=== PATIENT | male | born 1965 | race Caucasian/White ===

== ENCOUNTER 2019-08-06 14:04 | Emergency (ER) | payer BC, OTHER ==
--- OUTSIDE RECORDS SUMMARY | 2019-08-06 14:18 | XMS REPORT | Continuity of Care Document ---
:1965 External Reference #:[id number] Author Name Zulma Watson M.D. (transmitted by agent of provider Thomas Hodges) Address [address] [place] [address] Care Team Providers Name Role Phone Lesley Garcia MD - Internal Medicine Care Team Information Scroll Shear Operator [phone] Problems Active Problems Provider Date Cervical disc disorder Roque Santos M.D. Onset: 07/28/2017 Displacement of cervical intervertebral disc Roque Santos M.D. Onset: 09/13 Social History Type Date Description Comments Sex Unknown Smokeless Tobacco Never Used Smokeless Tobacco ETOH Use Rarely consumes alcohol Tobacco Use Start: Unknown Patient has never smoked Recreational Drug Use Denies Drug Use Smoking Status Reviewed: 06/15/19 Patient has never smoked Exercise Type/Frequency Exercises regularly Allergies, Adverse Reactions, Alerts Description No Known Drug Allergies Medications Active Medications SIG Qnty Indications Ordering Provider Date Cephalexin 1 tab by mouth 20caps L03.012 Zulma Watson, 06/15/2019 500mg four times a M.D. Capsules day x 5 days Multi Vitamin Daily 1 by mouth Unknown every day Tablets Immunizations Description No Information Available Vital Signs Date Vital Result Comment 06/15/2019 8:22am Height 68 inches 5'8" Weight 156.00 lb Heart Rate 70 /min BP Systolic 124 mmHg BP Diastolic 82 mmHg Body Temperature 97.1 F Pain Level 2 BMI (Body Mass Index) 23.7 kg/m2 01/13/2019 3:01pm Height 68 inches 5'8" Weight 155.00 lb Heart Rate 62 /min BP Systolic 130 mmHg BP Diastolic 74 mmHg Respiratory Rate 16 /min Body Temperature 97.2 F BMI (Body Mass Index) 23.6 kg/m2 Results Description No Information Available Procedures Date Code Description Status 01/13/2019 51157 Anoscopy Completed Medical Devices Description No Information Available Encounters Type Date Location Provider Dx Diagnosis Office Visit 01/13/2019 [facility] Sharpe64.2 Third degree 3:[facility] MD hemorrhoids Assessments Date Code Description Provider 06/15/2019 L03.012 Cellulitis of left finger Zulma Watson M.D. 06/15/2019 S63.637A Sprain of interphalangeal joint of left Zumla Watson M.D. little finger, initial encounter 01/13/2019 K64.2 Third degree hemorrhoids Mauricio Arreguin MD Plan of Treatment 06/15/2019 - Zulma Watson M.D.L03.012 Cellulitis of left fingerNew Medication:Cephalexin 500 mg - 1 tab by mouth four times a day x 5 daysFollow up :Follow up: As obefopA79.637A Sprain of interphalangeal joint of left little finger, initial encounter Functional Status Description No Information Available Mental Status Description No Information Available Referrals Description No Information Available
--- NOTE | 2019-08-06 14:54 | ED ---
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 Patient states he did not fall. Patient states that pain onset was immediate after his chest hit the wall. Patient states that the wall did not hit his abdomen or pelvis. Patient states he thought the wall hit his left ribs but the pain has now moved to his left chest wall. Patient states he has been waiting to be seen by a provider to see if the pain improves. He denies neck pain. Symptoms aggravated by sneezing and breathing. Patient rates the pain 7/10 in severity when he sneezes or breathes. Symptoms alleviated by heat. Patient states he has not taken any medications to treat the pain. Patient states he does not take any daily medications. Denies pertinent PMHx. Vital signs at triage: HR 66 BPM, BP 132/79, O2 sat 99% - History of Current Complaint Chief Complaint: EDChestWallPain Time Seen by Provider: 08/06/19 14:37 Hx Obtained From: Patient, Family/Analog Ic Design Engineer - Onset/Duration: Started Days Ago - Wednesday08/04/19, Traumatic, Still Present Timing: Constant, Lasting Days - Wednesday08/04/19, 2 days Initial Severity: Mild Current Severity: Mild Pain Intensity: 2 Pain Scale Used: 0-10 Numeric Chest Pain Location: Left Anterior Chest Pain Radiates: Yes Chest Pain Radiates To:: Back Character: Sharp/Stabbing Aggravating Factor(s): Deep Breaths, Other: - sneezing, breathing Alleviating Factor(s): Nothing Associated Signs and Symptoms: Positive: Negative - neck pain, Chest Pain - Allergy/Home Medications Allergies/Adverse Reactions: Allergies Allergy/AdvReac Type Severity Reaction Status Date / Time No Known Allergies Allergy Verified 08/06/19 14:09 PMH/Surg Hx/FS Hx/Imm Hx Previously Healthy: Yes Endocrine/Hematology History: Denies: Hx Anticoagulant Therapy, Hx Blood Disorders, Hx Diabetes Cardiovascular History: Denies: Hx Hypertension, Hx Pacemaker/ICD History: Denies: Hx Renal Disease Sensory History: Denies: Hx Hearing Aid Neurological History: Denies: Other Neuro Impairments/Disorders Psychiatric History: Denies: Hx Panic Disorder - Surgical History Surgical History: None Surgery Procedure, Year, and Place: None Infectious Disease History: No Infectious Disease History: Denies: Traveled Outside the [place] in Last 30 Days - Family History Known Family History: Positive: Cardiac Disease - father - [place] in 40's/50's, Other - mom - cancer 40's/50's - Social History Occupation: Employed Full-time Lives: With Family Alcohol Use: Rare Hx Substance Use: No Substance Use Type: Reports: None Hx Tobacco Use: No Smoking Status (MU): Never Smoked Tobacco Review of Systems Constitutional: Negative Positive: Other - left chest wall pain Respiratory: Negative Gastrointestinal: Negative Positive: no symptoms reported Musculoskeletal: Negative - neck pain Positive: Other - left rib pain Skin: Negative Neurological: Negative Psychological: Normal All Other Systems Reviewed And Are Negative: Yes Physical Exam - Summary Physical Exam Summary: Appearance: Well-appearing, minimal pain distress due to left chest pain, well- nourished Skin: Warm, color reflects adequate perfusion, dry, no bruising of left chest or ribs Head: Normal Head/Face inspection, atraumatic Eyes: Conjunctiva clear ENT: Normal inspection Neck: Supple, no nodes, no JVD, no spinal tenderness Respiratory: Lungs clear, normal breath sounds, no respiratory distress, tenderness in left anterior ribs #5-10, no crepitus Cardio: RRR, No murmur, pulses normal, brisk capillary refill Abdomen: Soft, nontender, non distended. Liver and spleen nontender, non palpable. Bowel sounds: Present Pelvis: Pelvic rock stable and non-tender, no bony tenderness Musculoskeletal: Strength Intact/ROM intact, no calf tenderness, no edema. No sign of injury. No bony tenderness. Psychological: Normal Neuro: Alert, muscle tone normal, no focal deficit Triage Information Reviewed: Yes Vital Signs On Initial Exam: Initial Vitals Temp Pulse Resp BP Pulse Ox 97.9 F 66 16 132/79 99 08/06/19 14:06 08/06/19 14:06 08/06/19 14:06 08/06/19 14:06 08/06/19 14:06 Vital Signs Reviewed: Yes Procedures - Sedation Patient Received Moderate/Deep Sedation with Procedure: No Diagnostics - Vital Signs Vital Signs Temp Pulse Resp BP Pulse Ox 08/06/19 14:06 97.9 F 66 16 132/79 99 - Laboratory Result Diagrams: 08/06/19 15:22 08/06/19 15:22 Lab Statement: Any lab studies that have been ordered have been reviewed, and results considered in the medical decision making process. - CT Chest/Abd/Pel CT Interpretation Completed By: Radiologist Summary of CT Findings: Hemangioma in the right lobe of liver. No pulmonary lesions are identified. No evidence of solid organ injury is noted. ED physician has reviewed this report. - EKG 1457 Cardiac Rate: NL - 62 BPM EKG Rhythm: Sinus Rhythm ST Segment: Non-Specific Ectopy: None EKG Comparison: Other - No prior to compare Summary of EKG Findings: An EKG at 14:57 reveals sinus rhythm 62 BPM, nml AV/IV CT, nml QTc, and nml axis. No acute changes. No prior EKG to compare. ED MD has reviewed and interpreted this EKG. Re-Evaluation - Re-Evaluation First Eval Re-Evaluation Time: 16:59 Change: Unchanged Comment: patient given a copy of his CT results and EKG. denies pain. rates the pain 0/10 in severity. 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 Upon exam, the patient has tenderness in left anterior ribs #5-10. Patient medications reviewed this visit. Nurses notes reviewed. Allergies noted. High blood pressure noted. Bloodwork results with no significant abnormalities except for Hct 41, BUN/creatinine 21.4, glucose 113, total protein 6.3, amylase 28. Troponin is zero. An EKG at 14:57 reveals sinus rhythm 62 BPM, nml AV/IV CT, nml QTc, and nml axis. No acute changes. No prior EKG to compare. ED MD has reviewed and interpreted this EKG. . In the ED course, the patient was given normal saline fluids 1 L IV. Patient declined pain medications when offered. CT Chest/Abd/Pel shows, per radiologist: Hemangioma in the right lobe of liver. No pulmonary lesions are identified. No evidence of solid organ injury is noted. Dr. Workman, radiology, personal communication states that hemangioma and hydrocele are not from trauma/injury. Patient will be discharged home. He was recommended to take Tylenol (acetaminophen) or ibuprofen as directed for pain. He was instructed to follow up from Dr. Garcia in 2 days. He was instructed to return to the Emergency Department for new or worsening symptoms. Patient understands and is agreeable to this plan. - Diagnoses Provider Diagnoses: Contusion of rib on left side, Hemangioma, Left hydrocele, Elevated blood pressure reading with diagnosis of hypertension - Provider Notifications Discussed Care Of Patient With: Cindi Workman Time Discussed With Above Provider: 16:24 Instructed by Provider To: Other - Dr. Wormkan, radiology, who states that hemangioma and hydrocele are not from trauma/injury. Discharge ED - Sign-Out/Discharge Documenting (check all that apply): Patient Departure - Discharge - Discharge Plan Condition: Stable Disposition: HOME Patient Education Materials: Hydrocele (ED), Rib Contusion (ED) Referrals: Lesley Garcia MD [Primary Care Provider] - 2 Days Additional Instructions: We have given you a copy of your CT results today. There are no serious injuries from your trauma apparent on the scan. So the diagnosis for your chest pain/rib pain is a rib contusion (bruised ribs). There are some "incidental" findings on the CT, which include a hemagioma in your liver, and a left hydrocele. I spoke with Dr. 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 Also the hydrocele is non-traumatic. So each of these findings can be discussed further with Dr. Garcia, but they do not require emergency treatment today. You may take Tylenol (acetaminophen) or ibuprofen as directed for pain. Please return to the Emergency Department for new or worsening symptoms. - Billing Disposition and Condition Condition: STABLE Disposition: Home - Attestation Statements Document Initiated by Scribe: Yes Documenting Scribe: Constance Baez Provider For Whom Scribe is Documenting (Include Credential): Yris Argueta MD Scribe Attestation: IConstance, scribed for Yris Argueta MD on 08/23/19 at 2025. Scribe Documentation Reviewed: Yes Provider Attestation: The documentation as recorded by the scribe, Constance Baez accurately reflects the service I personally performed and the decisions made by me, Yris Argueta MD Status of Scribe Document: Viewed
[2019-08-06] MEDS ORDERED: NS 0.9% 1000 ML** 1,000 ML IV ONE (15:12)
[2019-08-06 15:32] LABS: ABS Eosinophils 0.4 10^3/ul (0-0.6); ABS Lymphocytes 1.6 10^3/ul (1.0-4.8); ABS Monocytes 0.4 10^3/ul (0-0.8); ABS Neutrophils 4.7 10^3/ul (1.5-7.7); Hematocrit 41 % (42-52); Hemoglobin 14.3 g/dL (14.0-18.0); Lymphocyte % 22.1 %; Mean Corpuscular HGB Conc 35 g/dL (31-36); Mean Corpuscular Hemoglobin 31 pg (27-31); Mean Corpuscular Volume 87 fL (80-94); Mean Platelet Volume 8.4 fL (7.4-10.4); Platelet Count 165 10^3/uL (150-450); Red Blood Count 4.65 10^6 /uL (4.18-5.48); Red Cell Distribution Width 13 % (10-15)
[2019-08-06 15:36] LABS: INR 1.01 (0.82-1.09)
[2019-08-06 15:50] LABS: Albumin 4.1 g/dL (3.2-5.2); Albumin/Globulin Ratio 1.9 (1-3); BUN/Creatinine Ratio 21.4 (8-20); Calcium 9.2 mg/dL (8.6-10.3); EGFR African American 82.1 (>60); EGFR Non-African American 67.8 (>60); Globulin 2.2 g/dL (2-4); Potassium 3.7 mmol/L (3.5-5.0); Total Bilirubin 0.4 mg/dL (0.2-1.0); Total Protein 6.3 g/dL (6.4-8.9)
[2019-08-06] MEDS ORDERED: Iohexol 300* (CONTRAST) 10 ML SDV IV ONE (15:53)
[2019-08-06 17:31] VITALS: BP 120/65
== END 2019-08-06 17:30 | disposition home or self-care (01) ==
LOC: ED 14:04
DX: S20.212A Contusion of left front wall of thorax, initial encounter (principal); W20.8XXA Other cause of strike by thrown, projected or falling object, initial encounter; Y93.H3 Activity, building and construction; Y92.9 Unspecified place or not applicable; Y99.0 Civilian activity done for income or pay; D18.09 Hemangioma of other sites; N43.3 Hydrocele, unspecified; R03.0 Elevated blood-pressure reading, without diagnosis of hypertension
CPT/HCPCS: 36415; 71260; 74177; 80053; 82150; 82550; 83605; 83690; 84484; 85025; 85610; 93005; 96360; 99283; Q9967

== ENCOUNTER 2019-11-04 14:33 | Emergency (ER) | payer OTHER ==
[2019-11-04 16:30] VITALS: BP 140/80
--- NOTE | 2019-11-04 16:33 | ED ---
HPI Chest Pain - HPI Summary HPI Summary: This pt is a 54 Y/O M presenting to [facility] with a CC of L rib pain that started . He states that he was seen here on 08/24/2019 for his ribs and received a Rib X-Ray that found no fractures or breaks. He states that he has been feeling better until yesterday. He sneezed, and felt a crack in his L rib cage. He rates the pain a 2/10 in severity and states that he has increased pain with inhalation. He denies any alleviating factors. He denies any fever, cough, or other CP. He states that he has no pertinent PMHx and states that he has a FHx of cardiac disease. - History of Current Complaint Chief Complaint: EDUpperRespComplaint Time Seen by Provider: 11/04/19 15:10 Hx Obtained From: Patient Onset/Duration: Started Days Ago - 1, Still Present Timing: Constant, Lasting Days - 1 Initial Severity: Mild Current Severity: Mild Pain Intensity: 2 Pain Scale Used: 0-10 Numeric Chest Pain Location: Discrete at: - L rib cage Chest Pain Radiates: No Aggravating Factor(s): Deep Breaths Alleviating Factor(s): Nothing Associated Signs and Symptoms: Negative: Fever, Cough Related History: Similar Episode/Dx as: - 08/24/2019: similar symptoms, was not diagnosed with a fracture or break following a Rib X-Ray - Allergy/Home Medications Allergies/Adverse Reactions: Allergies Allergy/AdvReac Type Severity Reaction Status Date / Time No Known Allergies Allergy Verified 11/04/19 14:45 PMH/Surg Hx/FS Hx/Imm Hx Previously Healthy: Yes Endocrine/Hematology History: Denies: Hx Anticoagulant Therapy, Hx Blood Disorders, Hx Diabetes Cardiovascular History: Denies: Hx Hypertension, Hx Pacemaker/ICD History: Denies: Hx Renal Disease Sensory History: Denies: Hx Hearing Aid Neurological History: Denies: Other Neuro Impairments/Disorders Psychiatric History: Denies: Hx Panic Disorder - Cancer History Hx Chemotherapy: No Hx Radiation Therapy: No - Surgical History Surgical History: None Surgery Procedure, Year, and Place: None - Immunization History Immunizations Up to Date: Yes Infectious Disease History: No Infectious Disease History: Denies: Traveled Outside the [place] in Last 30 Days - Family History Known Family History: Positive: Cardiac Disease - father - [place] in 40's/50's, Other - mom - cancer 40's/50's - Social History Occupation: Employed Full-time Lives: With Family Alcohol Use: Rare Hx Substance Use: No Substance Use Type: Reports: None Hx Tobacco Use: No Smoking Status (MU): Never Smoked Tobacco Review of Systems Negative: Fever Positive: Chest Pain - L rib cage Negative: Cough All Other Systems Reviewed And Are Negative: Yes Physical Exam - Summary Physical Exam Summary: VITAL SIGNS: Reviewed. GENERAL: Patient is a well-developed and nourished male who is lying comfortable in the stretcher. Patient is not in any acute respiratory distress. HEAD AND FACE: No signs of trauma. No ecchymosis, hematomas or skull depressions. No sinus tenderness. EYES: PERRLA, EOMI x 2, No injected conjunctiva, no nystagmus. EARS: Hearing grossly intact. Ear canals and tympanic membranes are within normal limits. MOUTH: Oropharynx within normal limits. NECK: Supple, trachea is midline, no adenopathy, no JVD, no carotid bruit, no c- spine tenderness, neck with full ROM. CHEST: Symmetric, Tenderness in the L rib cage area, mid axillary line around 5th and 6th rib LUNGS: Clear to auscultation bilaterally. No wheezing or crackles. CVS: Regular rate and rhythm, S1 and S2 present, no murmurs or gallops appreciated. ABDOMEN: Soft, non-tender. No signs of distention. No rebound no guarding, and no masses palpated. Bowel sounds are normal. EXTREMITIES: FROM in all major joints, no edema, no cyanosis or clubbing. NEURO: Alert and oriented x 3. No acute neurological deficits. Speech is normal and follows commands. SKIN: Dry and warm Triage Information Reviewed: Yes Vital Signs On Initial Exam: Initial Vitals Temp Pulse Resp BP Pulse Ox 99.2 F 75 16 103/77 96 11/04/19 14:40 11/04/19 14:40 11/04/19 14:40 11/04/19 14:40 11/04/19 14:40 Vital Signs Reviewed: Yes Procedures - Sedation Patient Received Moderate/Deep Sedation with Procedure: No Diagnostics - Vital Signs Vital Signs Temp Pulse Resp BP Pulse Ox 11/04/19 14:40 99.2 F 75 16 103/77 96 - Laboratory Lab Statement: Any lab studies that have been ordered have been reviewed, and results considered in the medical decision making process. - Radiology Rib W/ CXR Radiology Interpretation Completed By: Radiologist Summary of Radiographic Findings: No LEFT rib fracture or pneumothorax evident. No radiographic evidence for traumatic thoracic disease. ED physician has reivewed this report. Chest Pain Course/Dx - Course Assessment/Plan: This pt is a 54 Y/O M presenting to [facility] with a CC of L rib pain that started 11/03/2019. He states that he was seen here on 08/24/2019 for his ribs and received a Rib X-Ray that found no fractures or breaks. He states that he has been feeling better until yesterday. He sneezed, and felt a crack in his L rib cage. He rates the pain a 2/10 in severity and states that he has increased pain with inhalation. He denies any alleviating factors. He denies any fever, cough, or other CP. He states that he has no pertinent PMHx and states that he has a FHx of cardiac disease. X-ray of the left side ribs negative for acute fracture dislocation. The patient did not require any pain medications. I discussed all the findings and test results with the patient. Patient was instructed to return to the emergency room immediately if any of the symptoms return worsens. Plan of care was discussed with the patient and understands and agrees. All questions were answered at patient satisfaction. There were no further complaints or concerns. Lung exam before discharge: CTA B/ L. Good air exchange. No wheezing or crackles heard. CVS: S1 and S2 present. No murmurs appreciated. Patient is alert and oriented x 3. Patient is hemodynamically stable. Patient will be discharged home with follow up PCP in the next 2-3 days - Chest Pain Differential Diagnosis/HQI/PQRI: Chest Wall, Lower Respiratory Infection - Diagnoses Provider Diagnoses: Rib pain on left side Discharge ED - Sign-Out/Discharge Documenting (check all that apply): Patient Departure - discharge - Discharge Plan Condition: Stable Disposition: HOME Patient Education Materials: Chest Pain (ED) Referrals: Lesley Garcia MD [Primary Care Provider] - 2 Days Additional Instructions: PLEASE RETURN TO THE ED IMMEDIATELY FOR WORSENING OR CONCERNING SYMPTOMS AND FOLLOW UP WITH YOUR PRIMARY CARE PHYSICIAN IN 1-3 DAYS. - Billing Disposition and Condition Condition: STABLE Disposition: Home - Attestation Statements Document Initiated by Scribe: Yes Documenting Scribe: Shemar Cervantes Provider For Whom Scribe is Documenting (Include Credential): Blake Myers MD Scribe Attestation: I, Shemar Cervantes, scribed for Blake Myers MD on 11/04/19 at 1812. Scribe Documentation Reviewed: Yes Provider Attestation: The documentation as recorded by the [email or web address] accurately reflects the service I personally performed and the decisions made by me, Blake Myers MD Status of Scribe Document: Viewed
== END 2019-11-04 16:29 | disposition home or self-care (01) ==
LOC: ED 14:33
DX: R07.81 Pleurodynia (principal)
CPT/HCPCS: 99282